=== PATIENT | female | born 1970 | race Caucasian/White ===

== ENCOUNTER 2025-07-09 18:48 | Emergency (ER) | payer OTHER, SELFPAY ==
[2025-07-09 19:15] VITALS: BP 106/73
[2025-07-09 19:50] LABS: Hematocrit 43.6 % (37.0-47.0); Hemoglobin 14.7 g/dL (12.0-16.0); Mean Corp Hgb Conc. 33.7 g/dL (33.0-37.0); Mean Corpuscular Volume 87.6 fL (81.0-99.0); Nucleated Red Blood Cells % 0 %; Platelet Count 284 10^3/uL (130-400); Red Cell Dist. Width 13.2 % (11.5-14.5)
[2025-07-09 20:02] LABS: ALT (SGPT) 32 U/L (0-35); AST (SGOT) 23 U/L (14-36); Albumin 4.5 g/dl (3.5-5.0); Alkaline Phosphatase 123 U/L (38-126); Blood Urea Nitrogen 28 mg/dl (7-17); Calcium 9.8 mg/dl (8.4-10.2); Carbon Dioxide 22 mmol/L (22-30); Chloride 106 mmol/L (98-107); Glucose 122 mg/dl (70-99); Potassium 4.9 mmol/L (3.5-5.1); Sodium 136 mmol/L (135-145); Total Protein 7.0 g/dl (6.3-8.2); eGFR 58.97
[2025-07-09 20:05] LABS: COVID-19 Antigen Negative (Negative)
[2025-07-09 23:55] LABS: Urine Character Clear (Clear)
--- NOTE | 2025-07-10 00:24 | ED.GENMED ---
ED Provider Triage
<Jacques Sigala MD, Resident - Last Filed: 07/10/25 04:32>
-
Patient seen by provider in Triage?: Seen in Triage
History of Present Illness
<Jacques Sigala MD, Resident - Last Filed: 07/10/25 04:32>
General
Chief Complaint: Cold/Flu/URI Symptoms
Source: patient
Exam Limitations: none
Time Seen by Provider: 07/09/25 23:48
Travel History
Have you traveled to any high risk areas for coronavirus over the past 14 days?: No
History of Present Illness
History of Present Illness:
patient has had a chronic cough for 6 weeks associated with sweats, fatigue, non bilious vomiting, and stress incontinence. Cough is a dry hacking cough. Recently visited the ED twice, first time on June 14 ( where she recieved augmentin,
steroids, and tesslon pearls) and then again on june 29 ( She recieved Doxycycline, steroid inhaler, and promethazine). No weight loss, no chills, no throat pain, no sore throat, no ear fullness/ discharge. Also think she has a UTI becuase
of rear flank plain. No dysuria, frequency, urgency. Has never smoked. Has previous history of asthma.
Past History
<Jacques Sigala MD, Resident - Last Filed: 07/10/25 04:32>
Past History
ED Past Medical History: None
Social History
Tobacco: Non-smoker
Alcohol: None
Drug: None
Personal:
Living: with family
Review of Systems
<Jacques Sigala MD, Resident - Last Filed: 07/10/25 04:32>
Review of Systems
All Other Systems: ROS reviewed and negative except as documented in HPI and ROS
Constitutional: Reports fatigue and night sweats; Denies fever or chills
EENT: Denies sore throat or runny nose
Respiratory: Reports cough
Cardiac: Reports no symptoms
ABD/GI: Denies abdominal pain, vomiting, diarrhea or pain
: Reports flank pain
Musculoskeletal: Reports no symptoms
Skin: Reports no symptoms
Psychiatric: Reports no symptoms
Phy Exam
<Jacques Sigala MD, Resident - Last Filed: 07/10/25 04:32>
General Physical Exam
General Presentation: mild distress
General Mental: alert
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
ENT Exam
ENT Exam: pharynx normal
Cardiovascular Exam
Cardiovascular Exam: regular rate/rhythm, no edema, no gallop, no JVD, no murmur and normal peripheral pulses
Pulmonary Exam
Pulmonary Exam: lungs clear and no respiratory distress
Cough: hacking cough and non productive cough
Gastrointestinal Exam
Gastrointestinal Exam: normal bowel sounds, non tender, soft and non distended
Musculoskeletal Exam
Musculoskeletal Exam: other (tenderness of the 3rd/4th right rib )
Skin Exam
Skin Exam: normal color, warm/dry and no rash
Course
<Jacques Sigala MD, Resident - Last Filed: 07/10/25 04:32>
Orders/Labs/Results
Orders:
Orders
07/09/25 19:19
CR Chest - 2 Views Urgent
Comment:
Reason For Exam: cough
07/09/25 19:25
Complete Blood Count/With Diff Urgent
Comprehensive Metabolic Panel Urgent
07/09/25 19:26
COVID-19 Antigen Urgent
Source: Nasal Swab
07/09/25 19:51
Influenza A+B Rapid Molecular Urgent
YVONNE Source: Nasal Swab
Specimen Description:
Date Specimen was Collected: 07/09/25
Time Specimen was Collected: 19:19
07/09/25 23:40
Urinalysis Reflex To Culture Urgent
Date Specimen was Collected: 07/09/25
Time Specimen was Collected: 19:19
Urine Microscopic Reflex Cult Urgent
Urine Culture Urgent
YVONNE Source: U
Specimen Description:
Date Specimen was Collected: 07/09/25
Time Specimen was Collected: 19:19
07/10/25 00:28
Ibuprofen [Motrin] 600 mg PO NOW STA
07/10/25 00:35
CT Chest PE Study Urgent
Comment:
Reason For Exam: right chest pain, SOB, cough
07/10/25 01:04
Diphenhydramine [Benadryl] 50 mg IV NOW STA
Hydrocortisone Sod Succinate [Solu-Cortef] 200 mg IV NOW STA
07/10/25 01:15
Electrocardiogram (*1) Urgent
Reason for Study: Chest Pain
EKG- Treatment ONCE
07/10/25 01:26
Troponin I Urgent
Abnormal Lab Results
07/09/25 07/09/25
19:25 23:40
WBC 14.0 H 10^3/uL
(4.8-10.8)
Abs Immat Gran (auto) 0.3 H 10^3/uL
(0-0.05)
Absolute Neuts (auto) 6.9 H 10^3/uL
(1.4-6.5)
Absolute Lymphs (auto) 4.8 H 10^3/uL
(1.2-3.4)
Absolute Monos (auto) 0.9 H 10^3/uL
(0.1-0.6)
Absolute Eos (auto) 0.9 H 10^3/uL
(0-0.7)
Immature Gran % 1.9 H %
(0-0.5)
Eosinophils % 6.5 H %
(0-6)
BUN 28 H mg/dl
(7-17)
Creatinine 1.1 H mg/dL
(0.6-1.0)
Glucose 122 H mg/dl
(70-99)
Leukocyte Esterase Rfl 3+ A
(Negative)
Urine Bacteria (Reflex) Few A
(Negative)
Urine Albumin (Reflex) 1+ A
(Neg - Trace)
07/09/25 19:25
07/09/25 19:25
Vital Signs
Initial and Last Documented VS:
Initial Vital Signs
Temp Pulse Resp BP Pulse Ox
98.6 F 97 16 106/73 97
07/09/25 19:15 07/09/25 19:15 07/09/25 19:15 07/09/25 19:15 07/09/25 19:15
Last Documented Vital Signs
Temp Pulse Resp BP Pulse Ox
98.6 F 96 20 106/64 95
07/09/25 19:15 07/10/25 03:30 07/10/25 03:30 07/10/25 02:00 07/10/25 03:30
<Mack Munoz MD - Last Filed: 07/10/25 04:29>
Orders/Labs/Results
Orders:
Orders
07/09/25 19:19
CR Chest - 2 Views Urgent
Comment:
Reason For Exam: cough
07/09/25 19:25
Complete Blood Count/With Diff Urgent
Comprehensive Metabolic Panel Urgent
07/09/25 19:26
COVID-19 Antigen Urgent
Source: Nasal Swab
07/09/25 19:51
Influenza A+B Rapid Molecular Urgent
YVONNE Source: Nasal Swab
Specimen Description:
Date Specimen was Collected: 07/09/25
Time Specimen was Collected: 19:19
07/09/25 23:40
Urinalysis Reflex To Culture Urgent
Date Specimen was Collected: 07/09/25
Time Specimen was Collected: 19:19
Urine Microscopic Reflex Cult Urgent
Urine Culture Urgent
YVONNE Source: U
Specimen Description:
Date Specimen was Collected: 07/09/25
Time Specimen was Collected: 19:19
07/10/25 00:28
Ibuprofen [Motrin] 600 mg PO NOW STA
07/10/25 00:35
CT Chest PE Study Urgent
Comment:
Reason For Exam: right chest pain, SOB, cough
07/10/25 01:04
Diphenhydramine [Benadryl] 50 mg IV NOW STA
Hydrocortisone Sod Succinate [Solu-Cortef] 200 mg IV NOW STA
07/10/25 01:15
Electrocardiogram (*1) Urgent
Reason for Study: Chest Pain
EKG- Treatment ONCE
07/10/25 01:26
Troponin I Urgent
Abnormal Lab Results
07/09/25 07/09/25
19:25 23:40
WBC 14.0 H 10^3/uL
(4.8-10.8)
Abs Immat Gran (auto) 0.3 H 10^3/uL
(0-0.05)
Absolute Neuts (auto) 6.9 H 10^3/uL
(1.4-6.5)
Absolute Lymphs (auto) 4.8 H 10^3/uL
(1.2-3.4)
Absolute Monos (auto) 0.9 H 10^3/uL
(0.1-0.6)
Absolute Eos (auto) 0.9 H 10^3/uL
(0-0.7)
Immature Gran % 1.9 H %
(0-0.5)
Eosinophils % 6.5 H %
(0-6)
BUN 28 H mg/dl
(7-17)
Creatinine 1.1 H mg/dL
(0.6-1.0)
Glucose 122 H mg/dl
(70-99)
Leukocyte Esterase Rfl 3+ A
(Negative)
Urine Bacteria (Reflex) Few A
(Negative)
Urine Albumin (Reflex) 1+ A
(Neg - Trace)
07/09/25 19:25
07/09/25 19:25
Vital Signs
Initial and Last Documented VS:
Initial Vital Signs
Temp Pulse Resp BP Pulse Ox
98.6 F 97 16 106/73 97
07/09/25 19:15 07/09/25 19:15 07/09/25 19:15 07/09/25 19:15 07/09/25 19:15
Last Documented Vital Signs
Temp Pulse Resp BP Pulse Ox
98.6 F 96 20 106/64 95
07/09/25 19:15 07/10/25 03:30 07/10/25 03:30 07/10/25 02:00 07/10/25 03:30
<Jacques Sigala MD, Resident - Last Filed: 07/10/25 04:32>
MDM/Problems Addressed
Differential Diagnosis Includes:
Post viral URI with intercoastal muscle strain, pneumonia, acute bronchitis, COVID/ FLU
MDM/Problems Addressed:
54 y/o female with chronic cough for 6 weeks s/p 2 visits to the ER where she received 2 courses of antibiotics and steroids. Ordered X ray of the chest pending, and if xray normal will order CT scan of chest. Motrin for right pain tenderness.
<Jacques Sigala MD, Resident - Last Filed: 07/10/25 04:32>
*Pulse Oximetry
SaO2: 97
Oxygen Mode of Delivery: Room air
Patient hypoxic: no
*Critical Care Note
Total Time (30-74mins, 75-104mins- exclusive of procedures): Not Applicable
<Jacques Sigala MD, Resident - Last Filed: 07/10/25 04:32>
Update Note
Update Note:
- Xray shows no evidence of pneumonia or effusion
- EKG shows normal sinus rhythm
- Ct chest shows inflammation of the bronchi consistent with bronchitis
- CT also shows renal mass incidental finding
- Will discharge patient on prednisone/budesonide and pulmonology follow up
ED Attending Note
<Jacques Sigala MD, Resident - Last Filed: 07/10/25 04:32>
-
Portions of this chart may have been created with voice recognition software.� Occasional wrong word or��sound alike� substitutions may have occurred due to the inherent limitations of voice recognition software.
<Mack Munoz MD - Last Filed: 07/10/25 04:29>
ED Attending Note
Patient seen and examined by attending physician: Yes
I performed a history and physical exam of patient and discussed management with resident, I reviewed resident's note and agree with documented findings and plan of care.: Yes
ED Attending Note:
I have seen and evaluated the patient with a [id number] encounter. I have spoken to the resident and involved in the medical history, the physical exam, medical decision making.
Evaluation and management service: agree unless noted differently below.
Results interpretation: agree unless noted differently below.
Focused HPI: 54-year-old female with history of cerebral palsy contracted in her right arm who presents to the ER for evaluation of cough. She says cough has been ongoing now for over 4 weeks and she has not noticed any improvement. She describes
a cough productive of clear sputum. She says that she has some mild associated shortness of breath. Recently she started to have some pain in the right side of her chest as well that is worse with coughing. She was initially seen in urgent care
in early June and was prescribed antibiotic (amoxicillin) and steroid. She says that she did not have any improvement after this and so she returned to urgent care and was prescribed doxycycline and steroid which she finished a few days ago.
Still has not noticed improvement and given constellation of symptoms now with worsening right sided chest pain decided come to the ER to be evaluated.
Physical exam: Awake and alert not in distress. Vital signs all within acceptable range�notably no hypoxia or tachypnea acceptable heart rate 80s to 90s. Lungs sound clear to auscultation although she does have frequent coughing throughout exam
particularly with inspiration. No JVD noted. No edema in the legs. She does have right chest wall tenderness. No cardiac rubs gallops or murmurs appreciated on auscultation.
Medical Decision Makin-year-old female presents for persistent coughing with some mild shortness of breath and now some right sided chest pain worse with coughing. Has not improved despite multiple outpatient courses of antibiotics and
steroids. Vitals and exam as above. Labs were sent off including a CBC which shows leukocytosis to 14 in the setting of recent steroid use. Chemistry shows marginal renal insufficiency with a creatinine of 1.1. COVID and flu swabs negative.
Chest x-ray reviewed by me shows no acute disease. Will plan to check CT chest. Will check EKG given report of chest pain. Will monitor closely reassess after the above.
CT chest no PE. Some bronchial thickening concerning for bronchitis. Will plan to treat with oral steroid and can trial inhaled steroid as well. Referred to pulmonology for follow-up. Incidental note made of renal mass�informed patient at this
will need follow-up and provided copy of CT report. Stable for discharge. All questions answered.
Discharge Plan
Departure
Patient Disposition: Home (Routine Discharge)
Date of Disposition: 07/10/25
Time of Disposition: 04:27
Patient with high blood pressure during this ER visit?: No
Discharge Problem:
Bronchitis
Instructions: Acute Bronchitis, Adult (DC)
Prescriptions:
New
prednisone 10 mg Tablet
See Rx Instructions .ROUTE .COMPLEX Qty: 45 0RF
Rx Instructions:
Take By Mouth:
50 mg daily x3 days, 40 mg daily x3 days,
30 mg daily x3 days, 20 mg daily x3 days,
10 mg daily x3 days
budesonide 90 mcg/actuation aerosol powdr breath activated
1 inh inhalation BID Qty: 1 0RF
No Action
Azithromycin
.FINISHED YESTERDAY
Patient Comments:
Z-JAJA-pt does not know dose
ahcpkgc-fcvicnddsxqul-[id number] [Excedrin Migraine] 1 TABLET tablet
1 tab PO PRN PRN (Reason: migraine)
sulfamethoxazole-trimethoprim 1 TABLET tablet
1 tab PO BID Qty: 14 0RF
Referrals:
Nas Connell MD [Active, Pulmonary Medicine] - Call in 1-3 days for appt
Ramon Yoon DO [Family Provider, Family Practice]
Activity Restrictions/Additional Instructions:
You were seen in the emergency room for persistent cough symptoms. You were found to have some inflammation of your bronchi on your CT consistent with bronchitis. We started you on medicine to help treat this. You should follow-up with the
specialist icu after your ER visit for continued care. Incidentally you were noted to have partially imaged abnormal area on your kidney that will need further evaluation. You should follow-up with your primary doctor soon as possible for
further assessment.
Thank you for visiting the Emergency Department at [facility].
1. Please schedule a follow up appointment as directed. Call first thing tomorrow morning to make an appointment.
2. If indicated, please take your medications as instructed and indicated on discharge paperwork.
3. If any of your symptoms do not improve, or persist, or become more severe within 6-12 hours, please return to the emergency department for further care.
4. Please return to the emergency department if you develop a headache, neck pain/stiffness, fever greater than 100.4F, chest pain, shortness of breath, persistent nausea, vomiting, slurred speech, difficulty walking, numbness/tingling, weakness,
signs of infection or any other symptoms that are worrisome to you.
Please call [phone] if you have any questions.
Interventions
Interventions:
*Risk Screen - Suicide Last Done: 07/09/25 23:30
*General Assessment Last Done: 07/09/25 23:30
*Neglect/Abuse Screening Last Done: 07/09/25 23:30
*ED- Fall Risk Assessment Last Done: 07/09/25 23:30
*ED COVID-19 Vaccine History Last Done: 07/09/25 23:30
ED- Pulmonary Assessment Last Done: 07/09/25 23:30
Discharge Date and Time
Print Language: IRANIAN
[2025-07-10 00:40] LABS: Urine Red Blood Cell 0-2 /HPF (0-2); Urine Squamous Cell 16-20 /LPF (Few)
[2025-07-10] MEDS: MOTRIN 600 MG PO (00:42)
[2025-07-10 00:43] VITALS: BP 116/77
[2025-07-10] MEDS: SOLU-CORTEF 200 MG IV (01:22)
[2025-07-10] MEDS: BENADRYL 50 MG IV (01:23)
[2025-07-10 01:30] VITALS: BP 124/71
[2025-07-10 02:00] VITALS: BP 106/64
[2025-07-10 02:03] LABS: Troponin I < 0.012 ng/ml
[2025-07-10 02:14] VITALS: BMI 29.2
[2025-07-10 04:42] VITALS: BP 111/73
== END 2025-07-10 04:44 | disposition home or self-care (01) ==
LOC: EMR 18:48
PROVIDERS: Emergency Medicine; EMERGENCY PHYSICIAN Emergency Medicine; FAMILY PHYSICIAN Family Medicine Sports Medicine
DX: J40 Bronchitis, not specified as acute or chronic (principal); G80.9 Cerebral palsy, unspecified; Z11.52 Encounter for screening for COVID-19
CPT/HCPCS: 99285; 96374; 96375; 71046; 71275; 80053; 81003; 81015; 84484; 85025; 87086; 87502; 87811; 93005; Q9967